=== PATIENT | male | born 1980 | race African-American/Black ===

== ENCOUNTER 2018-04-17 05:06 | Day surgery (SDC) | payer OTHER ==
[~2018-04-17] VITALS: Ht 167.6 cm; Wt 90.7 kg
[2018-04-17 06:11] VITALS: BP 124/77; Ht 167.6 cm; Wt 90.7 kg
--- NOTE | 2018-04-17 10:43 | OP ---
PATIENT NAME: KENYATTA ALMANZAR JR MEDICAL RECORD: [id number] [facility] DATE: SURGEON: MELISSA DELEON MD DATE OF OPERATION: 04/17/2018 PREOPERATIVE DIAGNOSIS: Symptomatic pilonidal cyst. POSTOPERATIVE DIAGNOSIS: Symptomatic pilonidal cyst. PROCEDURE: Pilonidal cystectomy. SURGEON: Melissa Deleon MD COMMISSIONER OF CONCILIATION: None. BLOOD LOSS: 100 cc. ANESTHESIA: General. COMPLICATIONS: None. I saw the patient in the holding area. I examined the pilonidal cyst. The pore is to the right of midline and is further cephalad than usual. With the patient, I discussed the pathophysiology of pilonidal cyst and how we resect them. Specifically, we discussed the risks of pilonidal cystectomy including dehiscence, wound infection, recurrence. I told him that pilonidal cysts have a high risk of dehiscence, either a complete dehiscence or a partial dehiscence because the area is under so much tension. Additionally, frequently pilonidal cyst excision sites will become infected and for that reason, a drain is left in place and the patient is placed on oral antibiotics postoperatively. OPERATIVE COURSE: The patient was conveyed to the operating room electively on 04/17/2018. General anesthesia was induced by the anesthesia staff. The patient was placed prone in the jackknife position. Buttocks taped laterally. The back and buttocks were sterilely prepped and draped. Through the pore, I advanced an Angiocath. A combination of methylene blue and hydrogen peroxide were injected through this port. Through the use of double curvilinear incisions, I excised the skin and subcutaneous tissue down to the sacrum. Hemostasis was achieved with electrocautery. I irrigated with hydrogen peroxide. Subcutaneous flaps were created sharply. The dimensions of the excision are 5.1 cm in the cephalad caudad dimension and 2.5 cm in the lateral dimension. The deep layer was closed with interrupted #1 Vicryls. The subcutaneous adipose tissue and skin were closed with interrupted horizontal mattress 2-0 Vicryls. I then placed a Kain drain between a few of these sutures and sutured the drain to the skin with a 2-0 silk. The patient was then extubated and conveyed to post-anesthesia care unit where he was in stable condition. I would like for the black suture, which is a silk suture, to be cut and the drain removed in 1 week. I would like to see the patient at the [facility] unit in 3 weeks for suture removal. It would be nice to keep a dry dressing over the operative site to keep drainage off of his clothes and also prevent any foreign material from getting into the wound. OPERATIVE REPORT [id number] KENYATTA ALMANZAR TRANSINT:[id number] Voice Confirmation ID: [id number] DOCUMENT ID: [id number] CC: Dr. Ron Curran MELISSA DELEON MD at 1043 CC: WHITNEY LI MD, MELISSA STARR MD, LUIS HUITRON [id number] AMELIA QUINTANILLA MD and THEO JOHNSNO DICTATION DATE: 04/17/18926 PERSONAL LINES AGENT: 04/17/18 1031 REG [facility] [address] [place] [address]
--- NOTE | 2018-04-17 11:35 | NUR ---
LEFT HAND PIV DC'D WITH TIP INTACT. DRESSING IN [facility] CLOTHING
[2018-04-17] MEDS ORDERED: COLACE100 MG PO (11:41)
[2018-04-17] MEDS ORDERED: HYDROCODON-ACE1 EAC7 PO (11:42)
[2018-04-17] MEDS ORDERED: KEFLEX500 MG PO (11:42)
--- NOTE | 2018-04-17 11:50 | NUR ---
DISCHARGE INSTRUCTIONS REVIEWED WITH PATIENT AND GUARDS
--- NOTE | 2018-04-17 12:05 | NUR ---
DISCHARGED TO [facility] BY WHEELCHAIR
== END 2018-04-17 12:05 | disposition home or self-care (01) ==
LOC: D.OPS 05:06
DX: L05.91 Pilonidal cyst without abscess (principal)